=== PATIENT | male | born 1965 | race Caucasian/White ===

== ENCOUNTER 2021-08-29 20:26 | Emergency (ER) | payer OTHER ==
[2021-08-29 21:35] LABS: ALT (SGPT) 31 U/L (8-55); AST (SGOT) 56 U/L (5-34); Albumin 3.8 g/dL (3.5-5.0); Alkaline Phosphatase 53 U/L (40-110); Anion Gap 16 mmol/L (10-20); BUN (Urea Nitrogen) 19 mg/dL (8.4-25.7); Bilirubin, Total 1.2 mg/dL (0.2-1.2); Calc. Creatinine Clearance 0 mL/min (70-130); Calcium 8.8 mg/dL (7.8-10.44); Carbon Dioxide 24 mmol/L (22-29); Chloride 99 mmol/L (98-107); Glucose 106 mg/dL (70-105); Potassium 3.7 mmol/L (3.5-5.1); Protein, Total 6.8 g/dL (6.0-8.3); Sodium 135 mmol/L (136-145)
[2021-08-29 21:42] LABS: Band 9 % (5-11); Eosinophils 1 % (0-10); Hemoglobin 14.5 g/dL (14.0-18.0); Lymphocytes 10 % (21-51); MDiff Complete? YES; Mean Corpuscular HGB CONC 34.9 g/dL (32.0-36.0); Mean Corpuscular Hemoglobin 31.6 pg (27.0-31.0); Mean Corpuscular Volume 90.4 fL (78.0-98.0); Mean Platelet Volume 8.3 fL (7.4-10.4); Monocytes 8 % (0-10); Neutrophil 72 % (42-75); Nucleated RBC 1 % (0); Platelet Count 118 thou/uL (130-400); Platelet Morphology Comment Appears Adequate; RBC Distribution Width 10.7 % (11.5-14.5); Red Blood Cell (RBC) Count 4.58 mill/uL (4.70-6.10); White Blood Cell (WBC) Count 5.5 thou/uL (4.8-10.8)
[2021-08-29 22:20] LABS: SARS-CoV-2 NAA Rapid Test DETECTED (NotDetected)
[2021-08-30] MEDS ORDERED: Dexamethasone 4 mg/ml Vial ONE (00:08)
== END 2021-08-30 00:34 | disposition short-term general hospital (02) ==
LOC: NAV ERS 20:26
DX: U07.1 COVID-19 (principal); I10 Essential (primary) hypertension; E78.5 Hyperlipidemia, unspecified; Z87.891 Personal history of nicotine dependence; Z79.899 Other long term (current) drug therapy
CPT/HCPCS: 71046; 80053; 83605; 84484; 85025; 94760; 96374; J1100; U0002

== ENCOUNTER 2025-07-11 09:23 | Emergency (ER) | payer OTHER ==
[~2025-07-11 09:23] MED LIST: Iopamidol 370 76% 100 ML VIAL ONE
[2025-07-11 10:08] LABS: #Basophils 0.3 thou/uL (0.0-0.2); #Eosinophils 0.1 thou/uL (0.0-0.7); #Lymphocytes 1.6 thou/uL (1.20-3.40); #Monocytes 0.4 thou/uL (0.11-0.59); #Neutrophils 7.2 thou/uL (1.40-6.50); %Basophils 2.7 % (0.0-1.0); %Eosinophils 0.8 % (0.0-10.0); %Lymphocytes 16.5 % (21.0-51.0); %Monocytes 4.6 % (0.0-10.0); %Neutrophils 75.4 % (42.0-75.0); Hematocrit 44.7 % (42.0-52.0); Hemoglobin 16.1 g/dL (14.0-18.0); Manual Diff?? NO; Mean Corpuscular Hemoglobin 31.1 pg (27.0-31.0); Mean Corpuscular Volume 86.3 fl (78.0-98.0); Platelet Count 207 10x3/uL (130-400); Red Blood Cell (RBC) Count 5.17 mill/uL (4.70-6.10); White Blood Cell (WBC) Count 9.5 10x3/uL (4.8-10.8)
[2025-07-11 10:14] LABS: ALT (SGPT) 19 U/L (Less than 45); AST (SGOT) 29 U/L (11-34); Albumin 4.5 g/dL (3.1-4.5); Alkaline Phosphatase 60 U/L (40-110); Anion Gap 13 mmol/L (10-20); BUN (Urea Nitrogen) 12 mg/dL (8.4-25.7); Bilirubin, Total 0.6 mg/dL (0.3-1.2); Calc. Creatinine Clearance 0 mL/min (70-130); Calcium 9.9 mg/dL (7.8-10.44); Carbon Dioxide 28 mmol/L (23-31); Chloride 102 mmol/L (98-107); Globulin 2.7 g/dL (2.4-3.5); Glucose 126 mg/dL (80-115); Lipase 8 U/L (8-78); Potassium 4.0 mmol/L (3.5-5.1); Sodium 139 mmol/L (136-145)
[2025-07-11] MEDS ORDERED: Aspirin 325 MG TAB ONE (10:20)
[2025-07-11] MEDS ORDERED: Pantoprazole 40 MG VIAL ONE (10:20)
[2025-07-11 10:21] LABS: Troponin I Less than 0.010 ng/mL (< 0.028)
[2025-07-11 13:00] LABS: Troponin I Less than 0.010 ng/mL (< 0.028)
[2025-07-11] MEDS ORDERED: Ketorolac Tromethamine 30 MG (1 mL) VIAL ONE (13:11)
[2025-07-11 13:27] LABS: Glucose, Urine (Dipstick) Negative (Negative); Leukocyte Negative (Negative); Protein, Urine (Dipstick) Negative (Neg-Trace); Specific Gravity, Urine 1.010 (1.005-1.030)
[2025-07-11 13:32] LABS: CAUTI Indications for Culture Pelvic or flank pain; RBC/HPF 0-3 HPF (0-3); Urine Culture Reflex No No; WBC/HPF None Seen HPF (0-3)
== END 2025-07-11 13:38 | disposition home or self-care (01) ==
LOC: NAV ERS 09:23
DX: N20.0 Calculus of kidney (principal); R11.2 Nausea with vomiting, unspecified; E78.5 Hyperlipidemia, unspecified; I10 Essential (primary) hypertension; Z87.891 Personal history of nicotine dependence; Z79.899 Other long term (current) drug therapy
CPT/HCPCS: 71045; 74177; 80053; 81001; 83605; 83690; 83880; 84484; 85025; 93005; 96361; 96374; 96375; J1885; J2470; J7030; Q9967